=== PATIENT | female | born 1960 | race Caucasian/White ===

== ENCOUNTER 2022-06-05 10:34 | Inpatient (IN) | payer SELFPAY ==
[2022-06-05] VITALS (8 sets, daily range): BP systolic 128–142; BP diastolic 71–80
[~2022-06-05] VITALS: Ht 172.7 cm; Wt 65.0 kg
--- NOTE | 2022-06-05 11:17 | NUR ---
general assessment done, awaiting review of assessment from RN.
--- NOTE | 2022-06-05 11:18 | NUR ---
processing technician at bedside.
[2022-06-05 11:26] LABS: ALANINE AMINOTRANSFERASE 32 U/L (12-78); ALBUMIN 3.7 G/DL (3.4-5.0); ALBUMIN/GLOBULIN RATIO 0.9 (1.1-1.5); ALKALINE PHOSPHATASE 79 IU/L (46-116); ANION GAP 6 (8-16); ASPARTATE AMINO TRANSFERASE 27 U/L (10-37); BILIRUBIN,TOTAL 1.3 MG/DL (0.1-1.0); BLOOD UREA NITROGEN 13 MG/DL (7-18); BUN/CREATININE RATIO 16.7 (6.6-38.0); CALCIUM 9.7 MG/DL (8.5-10.1); CHLORIDE 99 MMOL/L (99-107); CREATININE 0.78 MG/DL (0.40-0.90); GLUCOSE 130 MG/DL (70-104); LIPASE 53 U/L (73-393); POTASSIUM 3.8 MMOL/L (3.5-5.1); SODIUM 135 MMOL/L (135-145); TOTAL CARBON DIOXIDE 29.9 MMOL/L (24-32); TOTAL PROTEIN 7.9 G/DL (6.4-8.2); eGFR 75 ML/MIN
[2022-06-05 11:28] LABS: HEMOGLOBIN 15.5 g/dl (12.0-16.0); LYMPHOCYTES % (AUTO) 4.5 % (21-51); NEUTROPHILS # (AUTO) 24.8 X10'3 (1.8-7.7); RED CELL DISTRIBUTION WIDTH 12.9 % (11.5-14.5)
[2022-06-05 11:29] LABS: BASOPHILS # (AUTO) 0.1 X10'3 (0-0.2); BASOPHILS % (AUTO) 0.2 % (0-1); EOSINOPHILS % (AUTO) 0.1 % (0-6); LYMPHOCYTES # (AUTO) 1.2 X10'3 (1.1-4.8); MEAN CORPUSCULAR HEMOGLOBIN 31.1 PG (27.0-31.0); MEAN CORPUSCULAR VOLUME 94.2 FL (78-98); MEAN PLATELET VOLUME 8.1 FL (7.4-10.4); MONOCYTES # (AUTO) 1.6 X10'3 (0-0.9); MONOCYTES % (AUTO) 5.7 % (2-12); NEUTROPHILS % (AUTO) 89.5 % (42-75); PLATELET COUNT 398 X10'3 (140-440); RED BLOOD COUNT 4.99 X10'6 (4.20-5.60)
[2022-06-05 11:36] LABS: WHITE BLOOD COUNT 27.7 X10'3 (4.5-11.0)
[2022-06-05] MEDS ORDERED: piperacillin/tazo 3.375gm/50ml 50 ML IV ONE (11:40)
[2022-06-05] MEDS ORDERED: ondansetron/PF 4mg/2ml inj IV ONE (11:40)
[2022-06-05] MEDS ORDERED: morphine 4 MG/ML inj SYRINge IV ONE (11:40)
[2022-06-05] MEDS ORDERED: ketorolac trometh. 30mg/ml inj. IV ONE ×2 (11:40→17:45)
[2022-06-05] MEDS ORDERED: normal saline 1000ML IV soln IV ONE (11:40)
[2022-06-05 11:49] LABS: PLATELET ESTIMATE NORMAL; TOTAL CELLS COUNTED 100
[2022-06-05] MEDS ORDERED: potassium Cl 40MEQ/1/2NS 520ml 520 ML IV PRN (12:35)
[2022-06-05] MEDS ORDERED: normal saline 1000ml 1,000 ML IV SCH (12:35)
[2022-06-05] MEDS ORDERED: acetaminophen 325mg tablet PO PRN (12:35)
[2022-06-05] MEDS ORDERED: magnesium Cl slow-release 64mg tablet PO PRN (12:35)
[2022-06-05] MEDS ORDERED: HYDROcodone/acetaminophen 5mg/325mg tablet PO PRN (12:35)
[2022-06-05] MEDS ORDERED: magnesium 4gm in 100ml NS 100 ML IV PRN (12:35)
[2022-06-05] MEDS ORDERED: ondansetron/PF 4mg/2ml inj IV PRN ×2 (12:35→17:45)
[2022-06-05] MEDS ORDERED: morphine 2 MG/ML inj. syringe IV PRN ×2 (12:35→17:45)
[2022-06-05] MEDS ORDERED: potassium Cl 20 mEq SR tablet PO PRN ×2 (12:35)
[2022-06-05] MEDS ORDERED: PROG100C11 PO (14:10)
[2022-06-05] MEDS ORDERED: TESTOSTERONE IMPLANT SUBD (14:17)
[2022-06-05] MEDS ORDERED: ESTRADIOL SUBD (14:18)
[2022-06-05] MEDS ORDERED: AMIN1CAP5 PO (14:18)
[2022-06-05] MEDS ORDERED: MULT-1085 PO (14:19)
[2022-06-05] MEDS ORDERED: KRIL500C PO (14:20)
[2022-06-05] MEDS ORDERED: CHOL10006 PO (14:21)
[2022-06-05] MEDS ORDERED: RESV1POW PO (14:21)
[2022-06-05] MEDS ORDERED: CYAN250010 PO (14:22)
[2022-06-05] MEDS ORDERED: RESV1TAB2 PO (14:22)
[2022-06-05] MEDS ORDERED: MELA10TA2 PO (14:23)
[2022-06-05] MEDS ORDERED: ASCO-139 PO (14:23)
[2022-06-05] MEDS ORDERED: MAGN500C17 PO (14:24)
--- NOTE | 2022-06-05 15:11 | NUR ---
RECEIVED REPORT FROM THE ED AND ASSUMED CARE. PT JUST TRANSFERRED FROM ED TO ROOM 4022B A/OX4 VSS CALL HERRERA WITHIN REACH
--- NOTE | 2022-06-05 15:15 | NUR ---
Received pt from ED via [employer]. Pt ambulated to bed. Pt alert and oriented x4. Oriented pt to room and call light.
--- NOTE | 2022-06-05 17:01 | NUR ---
Report called to receiving nurse. [facility] via [employer] SENT WITH WHO WILL WAIT IN SURGERY WAITING ROOM BODY STRAIGHTENER TOOK PT VIA WINTER TO THE OR FOR SURGERY WITH DR COX CALLED PACU AND REPORTED OFF TO ROSEMARY. NO H&P IN CHART YET, CALLED DR COX OFFICE WHO IS GOING TO FAX THE H&P WHEN IT BECOMES AVAILABLE . Special Issues communicated to receiving nurse.
[2022-06-05 17:05] LABS: MAGNESIUM 2.1 MG/DL (1.5-2.4)
--- NOTE | 2022-06-05 17:17 | NUR ---
pt to OR
[2022-06-05] MEDS ORDERED: BUPIVAcaine 0.5% inj/PF 30 ML ONE (17:22)
[2022-06-05] MEDS ORDERED: midazolam 1 mg/ML 2ml injection ONE (17:36)
[2022-06-05] MEDS ORDERED: ringers solution, lacted 1,000 ML IV SCH (17:45)
[2022-06-05] MEDS ORDERED: sevoflurane 250ml liquid IH ONE (17:45)
[2022-06-05] MEDS ORDERED: acetaminophen 1,000mg/100ml IV 100 ML IV PRN (17:45)
[2022-06-05] MEDS ORDERED: morphine 4 MG/ML inj SYRINge IV PRN (17:45)
[2022-06-05] MEDS ORDERED: labetalol 20mg/4ml (5mg/ml) syringe IV PRN (17:45)
[2022-06-05] MEDS ORDERED: meperidine/PF 25mg/ml syringe IV PRN ×3 (17:45)
[2022-06-05] MEDS ORDERED: hydrALAZINE 20mg/ml inj. IV PRN (17:45)
[2022-06-05] MEDS ORDERED: proCHLORperazine 10 MG/2 ml inj IV PRN (17:45)
[2022-06-05] MEDS ORDERED: ceFOXitin 1000 MG inj ONE ×2 (18:07)
[2022-06-05] MEDS ORDERED: rocuronium 10mg/ml inj IV ONE (18:07)
[2022-06-05] MEDS ORDERED: LIDOcaine 2% (20mg/ml) 5ml vial ONE (18:07)
[2022-06-05] MEDS ORDERED: propofol inj 20 ML IV ONE (18:07)
[2022-06-05] MEDS ORDERED: fentaNYL /PF 50mcg/ml 5ml ampule ONE (18:07)
[2022-06-05] MEDS ORDERED: ePHEDrine 50MG/ML INJ. ONE (18:08)
[2022-06-05] MEDS ORDERED: ondansetron/PF 4mg/2ml inj ONE (18:08)
[2022-06-05] MEDS ORDERED: dexamethasone sod phosphate 4mg/ml inj. ONE (18:08)
[2022-06-05] MEDS ORDERED: BUPIVAcaine 0.5% inj/PF 30 ml vial IJ ONE (18:25)
[2022-06-05] MEDS ORDERED: neostigmine methylsulfate 1 MG/ML 10ml vial ONE (18:54)
[2022-06-05] MEDS ORDERED: glycopyrrolate 0.2mg/ml inj ONE (18:54)
--- NOTE | 2022-06-05 19:05 | NUR ---
Received from OR via BED, accompanied by Anesthesiologist and report given by Anesthesiologist. PATIENT WAKING UP, NO S/S OF PAIN, V/S WNL, SCD ON, 20G TO R forearm, abd sites dry, dermabond glue in place
[2022-06-05] MEDS ORDERED: K and/or MAG REPLACEMENT MC SCH (20:00)
--- NOTE | 2022-06-05 20:15 | NUR ---
PATIENT A&OX4, DENIES PAIN, V/S WNL, SCD OFF, 20G TO right forearm D/C, I HAVE REVIEWED D/C INSTRUCTIONS WITH PATIENT INSTRUCTIONS WITH PATIENT AND THEY HAVE VERBALIZED UNDERSTANDING. PATIENT D/C HOME WITH ALL BELONGINGS AND TRANSPORTED PATIENT HOME.
== END 2022-06-05 20:30 | disposition home or self-care (01) | DRG 419 ==
LOC: ER 10:34 → ED HOLD 12:36 → ORTHO 4S 15:05
PROVIDERS: ADMIT Internal Medicine; ATTEND Internal Medicine
PROC: 0FT44ZZ Resection of Gallbladder, Percutaneous Endoscopic Approach (ICD-10-PCS; principal; 2022-06-05 17:45)
DX: K80.00 Calculus of gallbladder with acute cholecystitis without obstruction (principal); G89.29 Other chronic pain; F12.90 Cannabis use, unspecified, uncomplicated; D72.829 Elevated white blood cell count, unspecified; Z28.310 Unvaccinated for COVID-19; Z80.0 Family history of malignant neoplasm of digestive organs; Z82.49 Family history of ischemic heart disease and other diseases of the circulatory system; Z87.891 Personal history of nicotine dependence; Z90.49 Acquired absence of other specified parts of digestive tract
CPT/HCPCS: 96361; 96365; 96375; 99285; Z7506; Z7508; 36415; 76700; 80053; 83690; 83735; 84145; 85007; 85025; 93005; A4215; A4618; A7000; G0378; J0694; J1100; J1885; J2250; J2270; J2405; J2543; J2704; J2710; J3010; J3490; J7030; J7120; S0020